=== PATIENT | male | born 1975 | race Two or more races ===

== ENCOUNTER → 2023-08-31 | Emergency (ER) | payer OTHER ==
[~2023-08-31] VITALS: Ht 180.3 cm; Wt 88.5 kg
[~2023-08-31] MED LIST: DICLOFENAC SODI75 MG PO; NORFLEX100MG PO; SYNTHROID175 MCG PO
== END | disposition home or self-care (01) ==
LOC: ER 12:34
DX: M62.830 Muscle spasm of back (principal)

== ENCOUNTER 2024-08-14 14:07 | Emergency (ER) | payer OTHER ==
[~2024-08-14] VITALS: Ht 180.3 cm; Wt 88.5 kg
[2024-08-14] MEDS ORDERED: BENZONATATE 100 MG CAPSULE PO ONE (15:45)
[2024-08-14] MEDS ORDERED: MONTELUKAST SODIUM 10 MG TABLET PO ONE (15:45)
[2024-08-14] MEDS ORDERED: LEVALBUTEROL HCL 1.25 MG/3 ML SOLUTION IH ONE (15:45)
[2024-08-14] MEDS ORDERED: METHYLPREDNISOLONE SOD SUCC 40 MG VIAL IM ONE (15:45)
[2024-08-14 16:18] LABS: HEMATOCRIT 41.1 % (39.0-48.0); HEMOGLOBIN 14.3 g/dL (13-16.00); MEAN CELL VOLUME 80.7 fL (80.0-100.00); MEAN CORPUSCULAR HEMOGLOBIN 28.1 pg (27.00-32.0); MEAN CORPUSCULAR HGB CONC 34.8 g/dl (32.0-36.0); PLATELET COUNT 140 K/uL (150-450); RED BLOOD COUNT 5.09 M/uL (4.00-6.00); RED CELL DISTRIBUTION WIDTH 13.7 % (11.5-14.5)
[2024-08-14] MEDS ORDERED: PEPCID AC20 MG PO (19:22)
[2024-08-14] MEDS ORDERED: LEVALBUTER0.63 MG/3 IH (19:22)
[2024-08-14] MEDS ORDERED: BENZONATATE200 M1 PO (19:22)
[2024-08-14] MEDS ORDERED: PROAIR RESPICL90 MCG IH (19:22)
== END 2024-08-14 20:45 | disposition home or self-care (01) ==
LOC: ER 14:09
PROVIDERS: General Practice
DX: J45.909 Unspecified asthma, uncomplicated (principal); J00 Acute nasopharyngitis [common cold]; Z20.822 Contact with and (suspected) exposure to COVID-19; E03.8 Other specified hypothyroidism